=== PATIENT | male | born 1995 | race Caucasian/White ===

== ENCOUNTER 2018-04-08 09:36 | Emergency (ER) | payer OTHER ==
--- NOTE | 2018-04-08 09:40 | ER Document Report ---
HPI - HPI Patient complains to provider of: Insect bite Onset/Duration: Gradual Pain Level: 1 Context: 22-year-old [employer] male with a bug bite on his right volar forearm from when he was out in the field now there is a red streak going up to his right axilla. No tick bite. No cat scratch or bite. No fever or chills. Associated Symptoms: None Exacerbated by: Denies Relieved by: Denies Similar symptoms previously: No Recently seen / treated by doctor: No - ROS ROS below otherwise negative: Yes Systems Reviewed and Negative: Yes All other systems reviewed and negative Past Medical History - General Information source: Patient - Social History Smoking Status: Never Smoker Frequency of alcohol use: None Drug Abuse: None Occupation: [employer] duty [employer] Lives with: Family Family History: Reviewed & Not Pertinent - Medical History Medical History: Negative Surgical Hx: Negative Vertical Provider Document - CONSTITUTIONAL Agree With Documented VS: Yes Exam Limitations: No Limitations - INFECTION CONTROL TRAVEL OUTSIDE OF THE [place] IN LAST 30 DAYS: No - HEENT HEENT: Normocephalic - NECK Neck: Supple - MUSCULOSKELETAL/EXTREMETIES Musculoskeletal/Extremeties: MAEW, FROM, Tender - Crusted bug bite without induration or abscess volar right forearm with lymphangitis to the right axilla. No axillary nodes - NEURO Level of Consciousness: Awake, Alert Motor/Sensory: No Motor Deficit, No Sensory Deficit - DERM Integumentary: Warm, Dry, Rash - See above Discharge - Discharge Clinical Impression: Insect bite with lymphangitis Condition: Good Disposition: HOME, SELF-CARE Instructions: Insect Bites ([facility]), Lymphadenopathy ([facility]) Additional Instructions: warm compress see your sick call for follow up to er if worse Prescriptions: Mupirocin [Bactroban 2% Ointment 22 gm] 1 applic TP TID #22 gm Sulfamethoxazole/Trimethoprim [Sulfamethoxazole-Tmp Ds Tablet] 1 each PO BID # 14 tablet
[2018-04-08 09:41] VITALS: BP 135/67
== END 2018-04-08 09:56 | disposition home or self-care (01) ==
LOC: ER 09:36
DX: S50.861A Insect bite (nonvenomous) of right forearm, initial encounter (principal); I89.1 Lymphangitis; W57.XXXA Bitten or stung by nonvenomous insect and other nonvenomous arthropods, initial encounter; Y92.89 Other specified places as the place of occurrence of the external cause
CPT/HCPCS: 99281